=== PATIENT | female | born 1995 | race Caucasian/White ===

== ENCOUNTER 2019-03-01 01:40 | Inpatient (IN) | payer OTHER, SELFPAY ==
[2019-03-01 00:55] VITALS: BMI 27.8
[2019-03-01 02:18] LABS: Absolute Lymphocyte Count 1.99 X10^3/uL (0.83-4.51); Absolute Neutrophil Count 8.2 X10^3/uL (2.0-7.7); Basophil# 0.03 X10^3/uL; Basophil% 0.3 % (0-1); Eosinophil# 0.04 X10^3/uL; Eosinophils% 0.4 % (0-5); Hematocrit 32.4 % (37-47); Hemoglobin 10.2 g/dL (12.0-15.0); Lymphocyte # 1.99 X10^3/ul (4.0); Lymphocyte % 17.5 % (19-41); Mean Corp Hgb Conc 31.5 g/dL (32-36); Mean Corpuscular Hgb 26.3 pg (27.0-32.0); Mean Corpuscular Volume 83.5 fL (81-99); Mean Platelet Vol. 12.1 fl (6.2-12.0); Monocyte# 1.08 X10^3/uL; Monocyte% 9.5 % (0-10); NRBC Flagged by Analyzer 0 % (0-5); Neutrophil # 8.19 X10^3/uL (2.7-7.7); Neutrophil % 71.7 % (47-70); Platelet Count 202 K/mm3 (150-450); RBC Distribution Width CV 13.8 % (11.6-14.6); RBC Distribution Width SD 41.7 fl (35.1-43.9); Red Blood Count 3.88 M/mm3 (4.2-5.4); White Blood Count 11.4 K/mm3 (4.4-11.0)
--- NOTE | 2019-03-01 07:34 | PCM.HP.OB ---
History Date of Admission: 03/01/19 Final DOC: 03/05/19 Gestational age: 39 Weeks and 3 Days History of this : This is a 24 year-old, G [], P [], at 39 weeks gestational age. Allergies No Known Allergies Allergy (Verified 03/01/19 00:58) Home Medications: Home Medications Calcium Carbonate [Tums] 500 mg PO Q6H PRN PRN 03/01/19 Vits [Prenatabs FA ] 1 tab PO DAILY 03/01/19 Smoking Status: Never smoker Alcohol: None - 130 with mod variability, accels TOCO Analysis: Q 2-3 minutes History Past Pregnancies: Past Pregnancies Delivery Date Name GA/Weeks Outcome Route Weight Infant Gender Labor Length Anesthesia Delivery Location Provider FOB Labs: See [facility] H&P Physical Exam General: Alert, Oriented x3 Abdomen: Soft, Non Tender, Non-Distended, Gravid Neurological: Cranial nerves II-XII grossly intact [employer] JUSTICE: Normal external genitalia Estimated gestational size: Appropriate for gestational size Cervix Dilation (cm): 7.5 - AROM clear fluid Station: 0 Effacement (%): 90 Assessment/Plan This is a 24 year-old, G1, P0, at 39&3 weeks gestational age. Admit to L&D. Expectant managment. Pain - declines epidural at this time. GBS negative. EFW less than 4500g, patient with adequate pelvis. Routine care.
[2019-03-01] MEDS: 0.9% Saline Lock 10 ML Syringe IV (09:20)
[2019-03-01] MEDS: Lactated Ringers 1,000 ML 50 ML IV (09:40)
[2019-03-01] MEDS: Oxytocin 30 units/NS 500 ml 30 UNITS/500 ML IV.SOLN 334 UNITS IV (11:39)
[2019-03-01] MEDS: Oxytocin 30 units/NS 500 ml 30 UNITS/500 ML IV.SOLN 167 UNITS IV (12:10)
--- NOTE | 2019-03-01 12:20 | PCM.OPRPT ---
Vaginal Delivery Maternal Presentation: Active Labor Amniotic Membrane Rupture Type: Artificial Amniotic Fluid Description: Clear Final DOC: 03/05/19 Gestational age: 39 Weeks and 3 Days Date of Procedure: 03/01/19 Pre-Operative Diagnosis: Labor Post-Operative Diagnosis: Labor Surgery/ Procedure Performed: Spontaneous Vaginal Delivery Type of Anesthesia: Epidural Description of Procedure: Patient prepped & draped when C/C/+3. She pushed to delivered the head. head was gently guided to allow delivery of anterior and posterior shoulders. No excess traction placed on head. Body delivered & infant placed on maternal abdomen. 3VC clamped & cut in delayed fashion. Placenta delivered with gentle traction. Good uterine tone obtained after pitocin & methergine. Presentation: MARIANELA Placental Delivery Description: Expressed Placenta Disposition: [facility] Cord Vessel Description: 3 Vessels Cord Entanglement: None Estimated Blood Loss: 500ml Infant A gender: Female - Steph (1 minute): 9 (5 minute): 9 Episiotomy Description: None Laceration: Vaginal Extension/lac - repaired with 3-0 vicryl Medications given after delivery: IV Pitocin, IM Methergin Complications: None
[2019-03-01] MEDS: Ibuprofen 600 MG Tablet PO (13:49)
[2019-03-01] MEDS: Acetaminophen 500 MG Tablet 1000 MG PO (14:33)
[2019-03-01 16:15] VITALS: BP 114/71; PULSE 72; RESP 16; TEMP 37.3
[2019-03-01 20:32] VITALS: BP 121/80; PULSE 77; RESP 18; TEMP 36.9
[2019-03-01 23:59] VITALS: BP 112/70; PULSE 69; RESP 18; TEMP 37.1
[2019-03-02] MEDS: Ibuprofen 600 MG Tablet PO ×3 (01:08→14:05)
[2019-03-02] MEDS: Acetaminophen 500 MG Tablet 1000 MG PO (04:37)
[2019-03-02 04:39] VITALS: BP 108/61; PULSE 75; RESP 18; TEMP 36.6
[2019-03-02] MEDS: Senna/Docusate Sodium 1 Tablet PO (08:14)
[2019-03-02 08:17] VITALS: BP 118/65; PULSE 76; RESP 16; TEMP 36.4
--- NOTE | 2019-03-02 08:38 | PCM.PROGNOTE ---
Subjective: Doing well per patient and nursing staff. Ambulating and taking PO without difficulty. Voiding and passing flatus. Bottle feeding. lochia normal. Planning D/C home today. - Physical Exam General: Alert, Oriented x3, Cooperative HEENT: Atraumatic, Normocephalic Neck: Trachea Midline Lungs: Clear to auscultation, Normal air movement, No rhonchi, No wheeze Cardiovascular: Regular rate, Regular Rhythm, No murmurs Abdomen: Bowel Sounds Present, - - Fundus firm 2 below U. Appropriately tender Extremities: No edema Psych/Mental Status: Normal Affect, Appropriate Vital Signs Temp Pulse Resp BP 97.6 F L 76 16 118/65 03/02/19 08:17 03/02/19 08:17 03/02/19 08:17 03/02/19 08:17 Oxygen Delivery Method Room Air Weight: 177 lb 11.081 oz Body Mass Index (BMI) 27.8 Intake and Output for Last 24 Hours 02/28/19 03/01/19 03/02/19 23:59 23:59 23:59 Intake Total 1100 / 1100 Output Total 450 / 450 Balance 650 / 650 Medical Necessity - Tobacco Use Smoking Status: Never smoker Assessment/Plan A:PPD #1 P: 1) Routine care. Would like discharge home today. 2) Follow up in 2 weeks and 6 weeks 3) Discharge instructions reviewed.
--- NOTE | 2019-03-02 08:41 | DCINST_ITS ---
Discharge Diet: No Restrictions Discharge Activity: Return to Normal Activity, May Drive, May Shower, May Take a Tub Bath May resume sexual activity in: 4-6 weeks Weight Bearing Status: Full weight bearing Additional Activity Instructions:: Nothing in the vagina for 4-6 weeks. You may return to work/school in 6 weeks. Call your doctor if your incision/area has: Continuous Slow Oozing, Sudden Increased Bleeding, Increased Pain/ Swelling, Increased Redness, Foul Smelling Discharge Call your doctor if you observe: Fever of 101 or Higher, Inability to urinate, Inability to have a bowel movement, Using more than one pad per hour, Shortness of breath, Chest pain, Increased palpitations (irregular heartbeat), Calf discomfort, Uncontrolled pain Instructions: After a Vaginal Additional Instructions: If you experience any of the following, contact your healthcare provider. * Bleeding that soaks a pad every hour for 2 hours * Fever 100.4 or higher * Unrelieved incision or abdominal pain * Swelling, redness, discharge or bleeding from your incision or episiotomy site * Your incision begins to separate * Problems urinating (including inability to urinate or burning while urinating). * Visual changes * Severe headache * Flu-like symptoms * Pain or redness in one of both of your breasts * Pain, warmth, tenderness or swelling in your legs, especially the calf area * Frequent nausea and vomiting * Symptoms of depression or anxiety If you experience any of the following, call 911 or go to the nearest Emergency Room. * Chest pain * Problems breathing * Seizure activity * Partial or complete paralysis of a body part, slurred speech, weakness or drooping of the face, or a sudden inability to walk or hold your balance Allergies/Adverse Reactions: Allergies No Known Allergies Allergy (Verified 03/01/19 00:58) Medications to take at Discharge Vits [Prenatabs FA ] 1 tab PO DAILY 03/01/19 Please Follow Up With: Roxi Guthrie When: Call to make an appointment with your doctor in 2 weeks and 6 weeks. Primary Care Physician: Care Physician,No Primary [Primary Care Provider] - Test Results: Test results from this visit will be discussed in further detail at your follow- up appointment, if applicable.
[2019-03-02] MEDS: Dibucaine 30 GM Tube 1 APPLIC TOPICAL (14:06)
[2019-03-02 14:15] VITALS: BP 117/70; PULSE 80; RESP 18; TEMP 36.6
== END 2019-03-02 14:15 | disposition home or self-care (01) | DRG 807 ==
LOC: WPOUT 01:43 → WP 11:42
PROVIDERS: Admitting Provider Obstetrics & Gynecology; Visit Provider Obstetrics & Gynecology
DX: O70.0 First degree perineal laceration during delivery (principal); Z37.0 Single live birth; Z3A.39 39 weeks gestation of pregnancy
CPT/HCPCS: 59025; 59050; 85025; 86850; 86900; 99218; J7120; A4216; G0378